=== PATIENT | female | born 1975 | race Two or more races ===

== ENCOUNTER 2021-03-29 08:54 | Emergency (ER) | payer OTHER ==
[~2021-03-29] VITALS: Ht 165.1 cm; Wt 63.5 kg
[2021-03-29] MEDS ORDERED: GLUMETZA500 MG (09:16)
[2021-03-29] MEDS ORDERED: SYNTHROID75 MCG (09:16)
== END 2021-03-29 16:16 | disposition home or self-care (01) ==
LOC: ER 08:54
DX: R10.31 Right lower quadrant pain (principal); K57.90 Diverticulosis of intestine, part unspecified, without perforation or abscess without bleeding; K76.0 Fatty (change of) liver, not elsewhere classified; N20.2 Calculus of kidney with calculus of ureter